=== PATIENT | female | born 1985 | race Two or more races ===

== ENCOUNTER 2018-08-16 10:45 | Outpatient (CLI) | payer OTHER | END 2018-08-16 10:54 | disposition home or self-care (01) | LOC: RX STUDY 10:45 | DX: N97.1 Female infertility of tubal origin (principal) ==

== ENCOUNTER 2020-08-28 10:40 | Outpatient (CLI) | payer OTHER | END 2020-08-28 10:49 | disposition home or self-care (01) | LOC: SONOGRAMA 10:40 | PROVIDERS: ATTEND Family Medicine | DX: R10.9 Unspecified abdominal pain (principal); R10.2 Pelvic and perineal pain ==